=== PATIENT | female | born 1955 | race African-American/Black ===

== ENCOUNTER 2017-05-19 13:43 | Emergency (ER) | payer OTHER, MEDICAID ==
[2017-05-19 13:46] VITALS: BP 141/99; BMI 41.9
--- NOTE | 2017-05-19 15:38 | DR.GENAD ---
HPI - PCP Primary Care Physician: FRANTZ - HPI Comment HPI Comment: WORSE TODAY. NO DYSURIA. - Complaint/Symptoms Chief Complaint Doctors Comments: LEFT FLANK PAIN, CHILLS AND NAUSEA WITH VOMITING TIMES 2 DAYS. Chief Complaint:: KIDNEY PAIN THAT STARTED 2 DAYS AGO NOW CHILLS - Nurses notes reviewed Nurses Notes Review: Yes - Source History Provided: Patient - Mode of Arrival Mode of Arrival: Ambulatory - Timing Onset of Chief Complaint: 05/17/17 Came on: Suddenly - Duration Duration: Constant Duration: Days - Severity Severity: Moderate PMH - PMH Past Medical History: Yes Past Medical History: Anxiety, Arthritis, Asthma, Dyslipidemia, Hypertension Past Surgical History: Yes Surgical History: [employer] Surgery, Hysterectomy - Family History History of Family Medical Conditions: Yes Family Medical History: Hypertension - Social History Does patient currently use any type of tobacco product: No Have you used tobacco products in the last 12 months: No Type of Tobacco Use: None Does any household member use tobacco: No Alcohol Use: None Do you use any recreational Drugs:: No Lives With: Family Lives Where: Home - infectious screening In the last 2 months have you had wt loss of >10#?: NO Have you had fever, night sweats or hemotysis?: No Have you traveled outside the country in the last 6 months?: No Isolation: Standard ROS - Review of Systems Constitutional: Chills, Weakness, Fatigue Eyes: No Symptoms Reported. negative: Eye Pain, Discharge ENTM: negative: Ear Pain, Nose Discharge, Nose Congestion, Throat Pain Respiratoy: No Symptoms Reported. negative: Productive Cough, Non-Productive Cough, Moist Cough, Short of Breath, Wheezing, Hemoptysis Cardiovascular: No Symptoms Reported Gastrointestinal/Abdominal: Abdominal Pain, Nausea, Vomiting Genitourinary: Other (LEFT FLANK PAIN) Neurological: Weakness. negative: Headache, Dizziness Musculoskeletal: Back Pain, Muscle Pain, Back Integumentary: No Symptoms Reported Hematologic/Lymphatic: No Symptoms Reported Endocrine: No Symptoms Reported All Other Systems: Reviewed and Negative PE - Vital Signs Vitals: Temperature 97.4 F Pulse Rate 85 Respiratory Rate 20 Blood Pressure 141/99 O2 Sat by Pulse Oximetry 98 - General Limitations: No Limitations General Appearance: Alert - Head Head Exam: Normal Inspection - Eyes Eye exam: Normal Appearance - ENT ENT Exam: Normal External Ear Exam External Ear Exam: Normal External Inspection TM/Canal Exam: Bilateral Normal Nose Exam: Normal Nose Exam Mouth Exam: Normal Inspection Throat Exam: Normal Inspection - Neck Neck Exam: Trachea Midline - Chest Chest Inspection: Symmetric Chest Wall Rise - Respiratory Respiratory Exam: Normal Lung Sounds Bilat Respiratory Exam: Bilateral Clear to Auscultation - Cardiovascular Cardiovascular Exam: Regular Rate, Normal Rhythm, Normal Heart Sounds - Abdominal Exam Abdominal Exam: Normal Bowel Sounds, Soft, Tenderness Abdominal Tenderness: LLQ, Suprapubic - Extremities Extremities Exam: Normal Inspection - Back Back Exam: (L) CVA Tenderness - Neurologic Neurological Exam: Alert, Oriented X3 - Psychiatric Psychiatric Exam: Normal Affect, Normal Mood - Skin Skin Exam: Normal Color [facility] - Additional Information Additional Information Obtained From: Family - Differential Diagnosis Differential Diagnosis: LEFT FLANK PAIN. LOWER ABDOMINAL PAIN, UTI, KIDNEY STONE Course - Treatment Treatment: SEE ORDERS. - Education/Counseling Education/Counseling: Patient, Family, Education Educated On: Diagnosis, Needs for Follow Up ROR - Labs Reviewed Laboratory Results Reviewed?: Yes Result Diagrams: 05/19/17 16:14 05/19/17 16:14 Laboratory: WBC 16.6 X10^3/uL (3.6-10.0) H 05/19/17 16:14 RBC 5.15 X10^6/uL (3.5-5.4) 05/19/17 16:14 Hgb 13.2 g/dL (12.0-16.0) 05/19/17 16:14 Hct 40.7 % (36.0-47.0) 05/19/17 16:14 MCV 79.2 fL (80.0-100.0) L 05/19/17 16:14 MCH 25.7 pg (27.0-34.0) L 05/19/17 16:14 MCHC 32.5 g/dL (33.0-35.0) L 05/19/17 16:14 RDW 14.2 % (11.6-16.5) 05/19/17 16:14 Plt Count 260 X10^3/uL (150.0-450.0) 05/19/17 16:14 Plt Count Comment Adequate (ADEQUATE) 05/19/17 16:14 MPV 9.3 fL (7.4-11.0) 05/19/17 16:14 Neut % 85.7 % (42.0-75.0) H 05/19/17 16:14 Lymph % 10.0 % (21.0-51.0) L 05/19/17 16:14 [place] % 3.7 % (0.0-13.0) 05/19/17 16:14 Eos % 0.1 % (0.9-2.9) L 05/19/17 16:14 Baso % 0.5 % (0.2-1.0) 05/19/17 16:14 Neut # 14.2 x10^3/uL (2.2-4.8) H 05/19/17 16:14 Lymph # 1.7 X10^3/uL (1.3-2.9) 05/19/17 16:14 [place] # 0.6 x10^3/uL (0.3-0.8) 05/19/17 16:14 Eos # 0.0 x10^3/uL (0.0-0.2) 05/19/17 16:14 Baso # 0.1 X10^3/uL (0.0-0.1) 05/19/17 16:14 Absolute Nucleated RBC 0.0 /100WBC 05/19/17 16:14 Plt Morphology Comment Normal (NORMAL) 05/19/17 16:14 RBC Morphology Abnormal (NORMAL) A 05/19/17 16:14 Hypochromasia Slight A 05/19/17 16:14 Sodium 141 mmol/L (136-145) 05/19/17 16:14 Corrected Sodium 142 mmol/L (136-145) 05/19/17 16:14 Potassium 3.0 mmol/L (3.5-5.1) L* 05/19/17 16:14 Chloride 102 mmol/L (98-107) 05/19/17 16:14 Carbon Dioxide 27.2 mmol/L (21-32) 05/19/17 16:14 BUN 9 mg/dL (7-18) 05/19/17 16:14 Creatinine 0.88 mg/dL (0.55-1.02) 05/19/17 16:14 Est GFR (MDRD) Af Amer > 60 (>60) 05/19/17 16:14 Est GFR (MDRD) Non-Af > 60 (>60) 05/19/17 16:14 Glucose 135 mg/dL (65-99) H 05/19/17 16:14 Calcium 9.6 mg/dL (8.5-10.1) 05/19/17 16:14 Corrected Calcium TNP 05/19/17 16:14 Total Bilirubin 0.40 mg/dL (0.2-1.0) 05/19/17 16:14 AST 27 Units/L (15-37) 05/19/17 16:14 ALT 26 Units/L (12-78) 05/19/17 16:14 Alkaline Phosphatase 129 Units/L (46-116) H 05/19/17 16:14 Total Protein 9.2 g/dL (6.4-8.2) H 05/19/17 16:14 Albumin 3.9 g/dL (3.4-5.0) 05/19/17 16:14 Globulin 5.3 g/dL (2.5-4.5) H 05/19/17 16:14 Albumin/Globulin Ratio 0.7 Ratio (1.1-2.1) L 05/19/17 16:14 Amylase 70 Units/L (25-115) 05/19/17 16:16 Lipase 37 Units/L (73-393) L 05/19/17 16:16 Specimen Type Clean catch urine 05/19/17 17:12 Urine Color [place] (YELLOW) 05/19/17 17:12 Urine Appearance Clear (CLEAR) 05/19/17 17:12 Urine pH Cancelled 05/19/17 17:09 Ur Specific [place] Cancelled 05/19/17 17:09 Urine Protein Cancelled 05/19/17 17:09 Urine Glucose (UA) Cancelled 05/19/17 17:09 Urine Ketones Cancelled 05/19/17 17:09 Urine Occult Blood Cancelled 05/19/17 17:09 Urine Nitrite Cancelled 05/19/17 17:09 Urine Bilirubin Cancelled 05/19/17 17:09 Urine Urobilinogen Cancelled 05/19/17 17:09 Ur Leukocyte Esterase Cancelled 05/19/17 17:09 Urine RBC 10-20 /HPF (NEGATIVE) 05/19/17 17:12 Urine WBC 10-20 /HPF (NEGATIVE) 05/19/17 17:12 Ur Squamous Epith Cells Rare /HPF (NEGATIVE) 05/19/17 17:12 Ur Transition Epith Cell Cancelled 05/19/17 17:09 Ur Renal Epithelial Cell Cancelled 05/19/17 17:09 Calcium Oxalate Crystal Cancelled 05/19/17 17:09 Cystine Crystals Cancelled 05/19/17 17:09 Uric Acid Crystals Cancelled 05/19/17 17:09 Triple Phos Crystals Cancelled 05/19/17 17:09 Tyrosine Crystals Cancelled 05/19/17 17:09 Other Crystals Cancelled 05/19/17 17:09 Amorphous Sediment Cancelled 05/19/17 17:09 Urine Bacteria 1+ /HPF (Negative) 05/19/17 17:12 Hyaline Casts Cancelled 05/19/17 17:09 Granular Casts Cancelled 05/19/17 17:09 Fine Granular Casts Cancelled 05/19/17 17:09 Coarse Granular Casts Cancelled 05/19/17 17:09 WBC Casts Cancelled 05/19/17 17:09 Other Casts Cancelled 05/19/17 17:09 Urine Mucus Cancelled 05/19/17 17:09 Urine Trichomonas Cancelled 05/19/17 17:09 Urine Yeast Cancelled 05/19/17 17:09 Urine Sperm Cancelled 05/19/17 17:09 Ur Culture Indicated? Yes/culture set up 05/19/17 17:12 Micro UA Comment Unable to perform (-) 05/19/17 17:12 - XRAY XRAY Interpreted by: Radiologist XRAY Findings: REPORT DISCUSS WITH PATIENT. - Diagnosis Discharge Problem: Flank pain Low back strain Qualifiers: Encounter type: initial encounter Qualified Code(s): S39.012A - Strain of muscle, fascia and tendon of lower back, initial encounter UTI (urinary tract infection) Qualifiers: Urinary tract infection type: acute cystitis Hematuria presence: without hematuria Qualified Code(s): N30.00 - Acute cystitis without hematuria - Discharge Plan Disposition: HOME, SELF-CARE Condition: Stable Prescriptions: Ibuprofen [MOTRIN TAB 600 MG *] 600 mg PO TID PRN #20 tab PRN Reason: Pain/Inflammation Levofloxacin [LEVAQUIN TAB 500 MG *] 500 mg PO DAILY #7 tab - Follow ups/Referrals Follow ups/Referrals: Alexis Joshua [Primary Care Provider] - 2 days - Instructions Instructions: Urinary Tract Infection, Adult, Flank Pain, [id number] Additional Instructions: RETURN TO ED IF WORSE.
[2017-05-19] MEDS ORDERED: TORADOL 60 MG VIAL IM ONE (15:49)
[2017-05-19] MEDS ORDERED: ZOFRAN INJ 4 MG VIAL IM ONE (15:49)
[2017-05-19] MEDS ORDERED: TORADOL 60 MG VIAL ONE (15:55)
[2017-05-19] MEDS ORDERED: ZOFRAN INJ 4 MG VIAL ONE (15:55)
[2017-05-19 16:33] LABS: BASOPHILS # (AUTO) 0.1 X10^3/uL (0.0-0.1); BASOPHILS % (AUTO) 0.5 % (0.2-1.0); EOSINOPHILS % (AUTO) 0.1 % (0.9-2.9); HEMATOCRIT 40.7 % (36.0-47.0); HEMOGLOBIN 13.2 g/dL (12.0-16.0); LYMPHOCYTES # (AUTO) 1.7 X10^3/uL (1.3-2.9); MEAN CORPUSCULAR HEMOGLOBIN 25.7 pg (27.0-34.0); MEAN CORPUSCULAR HGB CONC 32.5 g/dL (33.0-35.0); MEAN CORPUSCULAR VOLUME 79.2 fL (80.0-100.0); MEAN PLATELET VOLUME 9.3 fL (7.4-11.0); MONOCYTES # (AUTO) 0.6 x10^3/uL (0.3-0.8); MONOCYTES % (AUTO) 3.7 % (0.0-13.0); NEUTROPHILS # (AUTO) 14.2 x10^3/uL (2.2-4.8); NEUTROPHILS % (AUTO) 85.7 % (42.0-75.0); PLATELET COUNT 260 X10^3/uL (150.0-450.0); RED BLOOD COUNT 5.15 X10^6/uL (3.5-5.4); RED CELL DISTRIBUTION WIDTH 14.2 % (11.6-16.5); WHITE BLOOD COUNT 16.6 X10^3/uL (3.6-10.0)
[2017-05-19 16:48] LABS: PLATELET MORPHOLOGY COMMENT NORMAL (NORMAL)
[2017-05-19 16:49] LABS: HYPOCHROMASIA SLIGHT
[2017-05-19 16:51] LABS: BLOOD UREA NITROGEN 9 mg/dL (7-18); CALCIUM 9.6 mg/dL (8.5-10.1); CARBON DIOXIDE 27.2 mmol/L (21-32); CHLORIDE 102 mmol/L (98-107); COR NA(FOR HYPERGLY) 142 mmol/L (136-145); CREATININE 0.88 mg/dL (0.55-1.02); SODIUM 141 mmol/L (136-145); eGFR BLACK RACES > 60 (>60); eGFR NON BLACK RACES > 60 (>60)
--- NOTE | 2017-05-19 16:52 | CT ---
HISTORY: Left flank pain for 2 days, chills Study: CT abdomen and pelvis without contrast Comparison: 07/19/2013 Technique: Multiple axial images of the abdomen and pelvis were obtained without IV contrast. Dose reduction t echniques including Automated Exposure Control (AEC) and adjustment of mA and kV were utilized. Findings: Please note evaluation is limited without use of IV contrast. The visualized lung bases are clear. The spleen, pancreas, liver, and adrenal glands are unremarkabl e. Cholelithiasis is noted. No renal calculi are identified the there is prominence and stranding of the bilateral ureters. The urinary bladder appears thickened with surrounding fat stranding that can be seen with cystitis. No free intraperitoneal air. No evidence of intestinal obstruction or inflammation. The appendix is n ormal. There is a moderate volume of retained stool throughout the colon. No free fluid is identified . Multilevel spondylosis and discogenic degenerative changes of the spine are present. Limited evaluati on of vascular structures due to lack of contrast. No pathologically enlarged lymph nodes are identif ied. There is a left adnexal cystic structure measuring 5.4 x 2.6 cm similar to prior study from 2013 . IMPRESSION: 1. Thickened, inflamed appearance of the urinary bladder wall that may reflect cystitis. There is mil d stranding around the ureters as well therefore ascending urinary tract infection is not excluded. N o evidence of renal calculi or obstructive uropathy. 2. Cholelithiasis. 3. Unchanged cystic lesion along the left pelvic sidewall, possibly representing sequela of previous pelvic surgery. Reported By:
[2017-05-19 16:56] LABS: ALANINE AMINOTRANSFERASE 26 Units/L (12-78); ALBUMIN 3.9 g/dL (3.4-5.0); ALKALINE PHOSPHATASE 129 Units/L (46-116); ASPARTATE AMINO TRANSFERASE 27 Units/L (15-37); TOTAL PROTEIN 9.2 g/dL (6.4-8.2)
[2017-05-19] MEDS ORDERED: K-LYTE EFFERVESCENT PO ONE (16:57)
[2017-05-19] MEDS ORDERED: K-LYTE EFFERVESCENT ONE (17:06)
[2017-05-19 17:30] LABS: APPEARANCE,URINE CLEAR (CLEAR); BACTERIA,URINE 1+ /HPF (Negative); COLOR,URINE ORANGE (YELLOW); SQUAMOUS EPITHELIAL CELL,UR RARE /HPF (NEGATIVE)
[2017-05-19] MEDS ORDERED: NS 1000 ML 1,000 ML IV ONE (18:14)
[2017-05-19] MEDS ORDERED: ROCEPHIN 1 GM IV PREMIX 1 GM/50 ML IV.SOLN. IV ONE ×2 (18:14→18:20)
[2017-05-19] MEDS ORDERED: TORADOL 30 MG VIAL IVP ONE (18:15)
[2017-05-19] MEDS ORDERED: NS 1000 ML 1,000 ML ONE (18:20)
[2017-05-19 19:24] LABS: AMYLASE 70 Units/L (25-115); LIPASE 37 Units/L (73-393)
[2017-05-19] MEDS ORDERED: NORFLEX INJ IM ONE (20:10)
== END 2017-05-19 20:08 | disposition home or self-care (01) ==
LOC: ER 13:54
DX: N30.00 Acute cystitis without hematuria (principal); K80.20 Calculus of gallbladder without cholecystitis without obstruction; R10.84 Generalized abdominal pain; S39.012A Strain of muscle, fascia and tendon of lower back, initial encounter; B96.29 Other Escherichia coli [E. coli] as the cause of diseases classified elsewhere; Y33.XXXA Other specified events, undetermined intent, initial encounter; Y92.9 Unspecified place or not applicable
CPT/HCPCS: 36415; 74176; 80053; 81015; 82150; 83690; 85025; 87086; 87088; 87186; 96365; 96367; 96372; 96374; 99283; 99284; A4222; J0696; J1885; J2405